=== PATIENT | female | born 1980 | race Caucasian/White ===

== ENCOUNTER 2018-11-17 11:34 | Day surgery (SDC) | payer OTHER ==
[2018-11-10 12:24] VITALS: BMI 23.8
[2018-11-17 11:48] VITALS: TEMP 98.3
[2018-11-17 13:36] VITALS: BP 100/66; PULSE 62
--- NOTE | 2018-11-19 16:46 | PATH ---
Surgical Pathology Report Patient Name: VIC SHAFFER [facility]. Rec. #: [id number] /Age/Gender: 1980 (Age: 38) / F Account: [id number] Location: [facility] Taken: 11/17/2018 Received: 11/17/2018 Reported: 11/19/2018 Physicians: Octavia Ledezma M.D. Specimen(s) Received A: SECOND PORTION DUODENUM B: ANTRUM C: GE JUNCTION Clinical History Abdominal pain Postoperative diagnosis: Gastritis Final Diagnosis A. SECOND PORTION OF DUODENUM, BIOPSY: DUODENAL MUCOSA WITH NO PATHOLOGIC FINDINGS. B. GASTRIC ANTRUM, BIOPSY: SEVERE CHRONIC ACTIVE GASTRITIS. IMMUNOSTAIN SHOWS NUMEROUS H. PYLORI ORGANISMS. C. GE JUNCTION, BIOPSY: GASTRIC MUCOSA SHOWING SEVERE CHRONIC ACTIVE GASTRITIS. NUMEROUS H. PYLORI ORGANISMS ARE PRESENT. NEGATIVE FOR INTESTINAL METAPLASIA. NO ESOPHAGEAL (SQUAMOUS MUCOSA IS IDENTIFIED. Electronically Signed Edie Tobias M.D. Gross Description A. Received in formalin, labeled "biopsy second portion of duodenum" is a blount, irregular portion of soft tissue measuring 0.3 cm. in greatest dimension. The specimen is submitted in toto in one cassette. B. Received in formalin, labeled "biopsy gastric antrum" is a blount, irregular portion of soft tissue measuring 0.3 cm. in greatest dimension. The specimen is submitted in toto in one cassette. C. Received in formalin, labeled "biopsy GE junction" is a blount, irregular portion of soft tissue measuring 0.2 cm. in greatest dimension. The specimen is submitted in toto in one cassette. 11/18/2018 saudi11/18/2018
== END 2018-11-17 13:30 | disposition home or self-care (01) ==
LOC: FASU-ENDO 11:34
PROVIDERS: ATTEND Internal Medicine Gastroenterology
PROC: 0DB68ZX Excision of Stomach, Via Natural or Artificial Opening Endoscopic, Diagnostic (ICD-10-PCS; 2018-11-17)
PROC: 0DB38ZX Excision of Lower Esophagus, Via Natural or Artificial Opening Endoscopic, Diagnostic (ICD-10-PCS; 2018-11-17)
PROC: 0DB98ZX Excision of Duodenum, Via Natural or Artificial Opening Endoscopic, Diagnostic (ICD-10-PCS; principal; 2018-11-17 12:43)
DX: K29.50 Unspecified chronic gastritis without bleeding (principal); B96.81 Helicobacter pylori [H. pylori] as the cause of diseases classified elsewhere; R10.13 Epigastric pain
CPT/HCPCS: 84703; 88305-TC; 88342-TC

== ENCOUNTER 2022-07-02 10:27 | Day surgery (SDC) | payer OTHER ==
[2022-06-24 13:11] VITALS: BMI 23.3
[2022-07-02 12:33] VITALS: TEMP 98
[2022-07-02 12:41] VITALS: BP 110/60; PULSE 74; RESP 19
== END 2022-07-02 13:20 | disposition home or self-care (01) ==
LOC: FASU-ENDO 10:27
PROVIDERS: ATTEND Internal Medicine Gastroenterology
PROC: 0DJD8ZZ Inspection of Lower Intestinal Tract, Via Natural or Artificial Opening Endoscopic (ICD-10-PCS; principal; 2022-07-02 11:46)
DX: Z12.11 Encounter for screening for malignant neoplasm of colon (principal); K64.1 Second degree hemorrhoids
CPT/HCPCS: 84703